=== PATIENT | male | born 1990 | race African-American/Black ===

== ENCOUNTER 2017-04-16 02:04 | Inpatient (IN) | END 2017-04-19 13:00 | disposition home or self-care (01) | DRG 683 | DX: N17.9 Acute kidney failure, unspecified (principal); I16.1 Hypertensive emergency; I12.9 Hypertensive chronic kidney disease with stage 1 through stage 4 chronic kidney disease, or unspecified chronic kidney disease; N18.3 Chronic kidney disease, stage 3 (moderate); D63.8 Anemia in other chronic diseases classified elsewhere; Z91.14 Patient's other noncompliance with medication regimen ==

== ENCOUNTER 2018-01-24 18:23 | Inpatient (IN) | END 2018-01-27 15:26 | disposition home or self-care (01) | DRG 292 ==